=== PATIENT | male | born 1945 | race Two or more races ===

== ENCOUNTER 2021-02-04 16:48 | Inpatient (IN) | payer OTHER ==
[~2021-02-04] VITALS: Ht 182.9 cm; Wt 102.5 kg
[2021-02-04] MEDS ORDERED: ONDANSETRON HCL 4 MG/2 ML VIAL IV ONE (19:45)
[2021-02-04] MEDS ORDERED: SODIUM CHLORIDE 0.9% 500 ML IVB ONE (19:45)
[2021-02-04 20:00] LABS: Hemoglobin 15.3 g/dL (13.5-17.5); Mean Corpuscular Hemoglobin 32.3 pg (28.0-32.0); Mean Corpuscular Hgb Conc. 33.2 g/dL (32.0-36.0); Mean Corpuscular Volume 97.2 fL (80.0-100.0); Red Blood Cells 4.73 10^6/uL (4.5-5.90); Red Cell Distribution Width 13.3 % (11.8-14.3); White Blood Cell 19.9 10^3/uL (4.4-10.8)
[2021-02-04 20:06] LABS: Basophils % (manual) 0 (0.0-2.0); Blast Cells 0; Eosinophils % (manual) 0 (0-7); Metamyelocytes % 0; Myelocytes % 0; Promyelocytes % 0; Reactive Lymphocytes 0
[2021-02-04 20:31] LABS: Albumin 3.1 g/dL (3.4-5.0); BUN/Creatinine Ratio 20.4; Calcium 8.8 mg/dL (8.5-10.1)
[2021-02-04 20:33] LABS: Total Protein 7.1 g/dL (6.4-8.2)
[2021-02-04 21:21] LABS: Band Neutrophils % (manual) 11; Lymphocytes % (manual) 4 (10.0-50.0); Monocytes % (manual) 9 (0-12)
[2021-02-05 01:32] LABS: Urine Bacteria FEW /hpf (None Seen); Urine Blood 2+ /uL (Negative); Urine Budding Yeast OCCASIONAL /hpf (None Seen); Urine Hyaline Cast FEW /lpf (0 - 2); Urine Mucus MANY (None Seen); Urine Specific Gravity 1.021 (1.001-1.035); Urine WBC 467 /hpf (0 - 3); Urine WBC Clumps PRESENT /hpf (None Seen)
[2021-02-05] MEDS ORDERED: CEFTRIAXONE SODIUM 2 GM in D5W 5% 50 ML IV ONE (02:00)
[2021-02-05] MEDS ORDERED: cefTRIAXone 1GM/50ML D5W 100 ML IV ONE (02:15)
[2021-02-05] MEDS ORDERED: ACETAMINOPHEN 325 MG TAB PO PRN (05:45)
[2021-02-05] MEDS ORDERED: HYDROcodone-ACET 5/325MG TAB PO PRN (05:45)
[2021-02-05] MEDS ORDERED: ONDANSETRON HCL 4 MG/2 ML VIAL IV PRN (05:45)
[2021-02-05] MEDS ORDERED: TEMAZEPAM 15 MG CAP PO PRN (05:45)
[2021-02-05] MEDS: FINASTERIDE 5 MG TAB PO SCH (09:50)
[2021-02-05] MEDS: PANTOPRAZOLE 40 MG TAB PO SCH (09:51)
[2021-02-05] MEDS ORDERED: ATOR20TA50 PO (19:35)
[2021-02-05] MEDS ORDERED: FINA5TAB4 PO (19:35)
[2021-02-05] MEDS ORDERED: TERA10CA36 PO (19:35)
[2021-02-05] MEDS ORDERED: ASPI-543 PO (19:35)
[2021-02-05 20:00] VITALS: BP 121/64
[2021-02-05 22:00] VITALS: BP 121/80
[2021-02-05] MEDS: ATORVASTATIN 20 MG TAB PO SCH (22:03)
[2021-02-05] MEDS: TERAZOSIN HCL 5 MG CAP PO SCH (22:03)
[2021-02-06 00:53] VITALS: BP 121/64
[2021-02-06] MEDS ORDERED: cefTRIAXone 1GM/50ML D5W 50 ML IV SCH (02:00)
[2021-02-06 05:00] VITALS: BP 114/58
[2021-02-06 05:34] LABS: Basophils # (auto) 0 10 ^3/uL (0-0.2); Basophils % (auto) 0.3 % (0.0-2.0); Eosinophils # (auto) 0.2 10 ^3/uL (0-0.8); Eosinophils % (auto) 1.8 % (0.0-7.0); Lymphocytes % (auto) 8.3 % (10.0-50.0); Mean Corpuscular Hemoglobin 32.4 pg (28.0-32.0); Mean Corpuscular Hgb Conc. 33.3 g/dL (32.0-36.0); Monocytes # (auto) 1.1 10 ^3/uL (0-1.3); Monocytes % (auto) 9.3 % (0.0-12.0); Neutrophils # (auto) 9.8 10 ^3/uL (1.6-8.6); Neutrophils % (auto) 80.3 % (37.0-80.0); Red Blood Cells 4.33 10^6/uL (4.5-5.90); White Blood Cell 12.2 10^3/uL (4.4-10.8)
[2021-02-06 05:51] LABS: Calcium 8.3 mg/dL (8.5-10.1); Potassium 3.6 mmol/L (3.5-5.1)
[2021-02-06 08:00] VITALS: BP 115/64
[2021-02-06 09:00] VITALS: BP 115/64
[2021-02-06] MEDS ORDERED: CEFTRIAXONE SODIUM 2 GM in D5W 5% 50 ML IV SCH (10:00)
[2021-02-06] MEDS: PANTOPRAZOLE 40 MG TAB PO SCH (10:57)
[2021-02-06] MEDS: FINASTERIDE 5 MG TAB PO SCH (10:57)
[2021-02-06 17:00] VITALS: BP 135/79
[2021-02-06 22:00] VITALS: BP 120/72
[2021-02-06] MEDS: TERAZOSIN HCL 5 MG CAP PO SCH (22:20)
[2021-02-06] MEDS: ATORVASTATIN 20 MG TAB PO SCH (22:20)
[2021-02-07 05:00] VITALS: BP 120/72
[2021-02-07 09:00] VITALS: BP 118/73
== END 2021-02-07 09:40 | disposition short-term general hospital (02) | DRG 872 ==
LOC: ER 16:48 → OVERFLOW 02-05 05:34 → WEST WING 02-05 18:44
PROVIDERS: ADMIT Nurse Practitioner; ATTEND Internal Medicine Nephrology
DX: A41.9 Sepsis, unspecified organism (principal); N39.0 Urinary tract infection, site not specified; E44.0 Moderate protein-calorie malnutrition; Z20.822 Contact with and (suspected) exposure to COVID-19; R31.9 Hematuria, unspecified; N43.3 Hydrocele, unspecified; K57.30 Diverticulosis of large intestine without perforation or abscess without bleeding; N45.3 Epididymo-orchitis; K76.89 Other specified diseases of liver; K44.9 Diaphragmatic hernia without obstruction or gangrene; N20.0 Calculus of kidney; N28.1 Cyst of kidney, acquired; E78.5 Hyperlipidemia, unspecified; K21.9 Gastro-esophageal reflux disease without esophagitis; R42 Dizziness and giddiness; N40.0 Benign prostatic hyperplasia without lower urinary tract symptoms; Z68.30 Body mass index [BMI] 30.0-30.9, adult; Z87.442 Personal history of urinary calculi
CPT/HCPCS: 36415; 71045; 74176; 76870; 80048; 80053; 81001; 83690; 84484; 85007; 85025; 85027; 87040; 87086; 87426; 93005; 96361; 96365; G0378; J0696; J7060